=== PATIENT | female | born 1995 | race Caucasian/White ===

== ENCOUNTER 2017-10-18 21:17 | Outpatient (CLI) | payer BC, OTHER ==
[~2017-10-18] VITALS: Ht 149.9 cm; Wt 68.0 kg
[2017-10-18 22:10] LABS: MICROSCOPIC INDICATED
[2017-10-18 22:17] LABS: AMPHETAMINE SCREEN, URINE Negative (Negative); BARBITURATE SCREEN, URINE Negative (Negative); BENZODIAZEPINE SCREEN, URINE Negative (Negative); CANNABINOID SCREEN, URINE Negative (Negative); COCAINE SCREEN, URINE Negative (Negative); METHADONE SCREEN, URINE Negative (Negative); OPIATE SCREEN, URINE Negative (Negative)
== END 2017-10-18 22:27 | disposition home or self-care (01) ==
LOC: LDOP 21:17
PROVIDERS: ATTEND Obstetrics & Gynecology
DX: O26.893 Other specified pregnancy related conditions, third trimester (principal); R10.9 Unspecified abdominal pain; Z3A.36 36 weeks gestation of pregnancy
CPT/HCPCS: 59025; 76815; 80307; 81001; 99201; G0463

== ENCOUNTER 2017-10-29 10:27 | Outpatient (CLI) | payer OTHER ==
[~2017-10-29] VITALS: Ht 149.9 cm; Wt 67.7 kg
[2017-10-29 10:52] VITALS: BP 135/71
[2017-10-29 11:30] LABS: MICROSCOPIC INDICATED
== END 2017-10-29 12:50 | disposition home or self-care (01) ==
LOC: LDOP 10:27
PROVIDERS: ATTEND Obstetrics & Gynecology
DX: O26.893 Other specified pregnancy related conditions, third trimester (principal); R10.9 Unspecified abdominal pain; Z3A.38 38 weeks gestation of pregnancy
CPT/HCPCS: 59025; 81001; 87086; 99211; G0463

== ENCOUNTER 2020-07-30 19:14 | Observation (INO) | payer MEDICAID ==
[~2020-07-30] VITALS: Ht 149.9 cm; Wt 70.9 kg
[2020-07-30 17:42] VITALS: BP 114/69
[2020-07-30 18:14] LABS: MICROSCOPIC INDICATED
[2020-07-30 18:28] LABS: AMPHETAMINE SCREEN, URINE Negative (Negative); BARBITURATE SCREEN, URINE Negative (Negative); BENZODIAZEPINE SCREEN, URINE Negative (Negative); CANNABINOID SCREEN, URINE Negative (Negative); COCAINE SCREEN, URINE Negative (Negative); METHADONE SCREEN, URINE Negative (Negative); OPIATE SCREEN, URINE Negative (Negative)
[2020-07-30 18:41] LABS: BASOPHILS % (AUTO) 1 % (0-1); EOSINOPHILS % (AUTO) 1 % (1-7); LYMPHOCYTES % (AUTO) 18 % (22-44); MEAN CORPUSCULAR HEMOGLOBIN 26.9 pg (27.0-34.8); MEAN CORPUSCULAR HGB CONC 32.2 g/dL (32.4-35.8); MEAN PLATELET VOLUME 8.6 fL (7.4-10.4); MONOCYTES % (AUTO) 7 % (2-9); NEUTROPHILS % (AUTO) 73 % (42-75); PLATELET COUNT 280 x10^3/uL (130-400); RED BLOOD COUNT 4.34 x10^6/uL (3.82-5.3); RED CELL DISTRIBUTION WIDTH 13.5 % (9.6-15.2)
[2020-07-30 18:48] LABS: MD NO
[~2020-07-30 19:14] MED LIST: PREN1TAB60 PO
[2020-07-30 19:41] LABS: ALANINE AMINOTRANSFERASE 13 U/L (12-78); ALBUMIN 2.9 g/dL (3.4-5.0); ANION GAP 6 mmol/L (5-15); CALCIUM 8.6 mg/dL (8.5-10.1); CHLORIDE 109 mmol/L (98-107); CREATININE 0.55 mg/dL (0.55-1.02)
[2020-07-30 19:44] LABS: ALKALINE PHOSPHATASE 77 U/L (45-117); BILIRUBIN,TOTAL 0.4 mg/dL (0.2-1.0); TOTAL PROTEIN 7.1 g/dL (6.4-8.2)
[2020-07-30] MEDS ORDERED: NITROFURANTOIN (MACROBID) 100 MG CAPSULE ONE (20:57)
[2020-07-30] MEDS ORDERED: NITROFURANTOIN (MACROBID) 100 MG CAPSULE PO SCH (21:00)
== END 2020-07-30 21:16 | disposition home or self-care (01) ==
LOC: LDOP 19:14 → LDIP 21:16
PROVIDERS: ADMIT Obstetrics & Gynecology; ATTEND Obstetrics & Gynecology
DX: O26.892 Other specified pregnancy related conditions, second trimester (principal); R10.9 Unspecified abdominal pain; Z20.828 Contact with and (suspected) exposure to other viral communicable diseases; O99.512 Diseases of the respiratory system complicating pregnancy, second trimester; J45.909 Unspecified asthma, uncomplicated; O99.342 Other mental disorders complicating pregnancy, second trimester; F32.9 Major depressive disorder, single episode, unspecified; O12.02 Gestational edema, second trimester; Z87.440 Personal history of urinary (tract) infections; Z79.899 Other long term (current) drug therapy; Z3A.24 24 weeks gestation of pregnancy
CPT/HCPCS: 36415; 76805; 80053; 80307; 81001; 82150; 83690; 85025; 86592; 86762; 86850; 86900; 87086; 87340; 87635; 87806; 99211; G0378; G0463; G0475